=== PATIENT | female | born 1950 | race Caucasian/White ===

== ENCOUNTER 2019-05-05 11:42 | Outpatient (CLI) | payer OTHER, SELFPAY ==
--- NOTE | 2019-05-05 11:30 | DI.RAD_ITS ---
EXAM: XR SHOULDER LT COMPLETE 2+V INDICATION: LEFT SHOULDER PAIN WITH RESTRICTED LUE ABDUCTION, M25.512 PAIN LT SHOULDER. COMPARISON: LEFT RIBS TO INCLUDE CXR from 05/29/2016 TECHNIQUE: 2D digital imaging was performed. FINDINGS: There appears to be a cortical defect at the superior aspect of the acromion at the acromioclavicular joint. There is an osseous density in the vicinity. This may represent a small avulsed fracture. A bony erosive lesion cannot be excluded. There are mild degenerative changes seen at the acromiocla vicular joint. The glenohumeral joint is well maintained. The soft tissues are unremarkable. Joshua al wires are in place. IMPRESSION: Cortical defect involving the superior aspect of the acromion at the AC joint. Differential consider ations include a fracture or erosion. Please correlate with the patient's clinical history. A CT sc an may be considered for further evaluation.
== END 2019-05-05 12:02 ==
PROVIDERS: PCP Family Medicine; Visit Provider Nurse Practitioner Family
DX: M25.512 Pain in left shoulder (principal); M25.812 Other specified joint disorders, left shoulder; M21.922 Unspecified acquired deformity of left upper arm
CPT/HCPCS: 73030

== ENCOUNTER 2019-05-12 08:53 | Outpatient (CLI) | payer OTHER, SELFPAY ==
[2019-05-12 09:11] VITALS: BP 112/63; PULSE 55; RESP 16; TEMP 36.6; O2SAT 96
--- NOTE | 2019-05-12 09:40 | PDOC.PAIN ---
Pain Clinic Procedure Note Procedure Note Procedure Note: TRIGGER POINT INJECTION PROCEDURE NOTE The patient has complains of left shoulder pain due to left shoulder impingement and she exhibits myofascial pain of the left trapezius. she is referred today for trigger point injectino of the left trapezius. She has been evaluated by Ms Ambar Davison APRN. Ms Pearce was greeted by the nurse who verified patient's name and . Ms Pearce was interviewed and medical record reviewed. There were no medical, pharmacologic, radiographic and other structural contra-indications to attempting trigger point injections to the left trapezius muscle. Risks and potential side effects were discussed. The potential benefits of the procedure were reviewed with Ms Pearce and her voiced concerns were addressed. After obtaining informed consent, the patient signed the consent form. Standard time-out procedure was performed. Ms Pearce was placed in the seated position on the examination table. The skin entry point for entering and approaching the left trapezius muscle was marked. The skin was thoroughly prepared with alcohol preparation. Next, I entered the skin using a medial to lateral appraoch with a 1.5'' 25 gauge needle. Aspiration revealed no blood or other fluid. Next, point anesthesia was obtained by injecting a 50:50 mixture of 1% lidocaine and 0.5% Bupivocaine. Total of 10cc was used over 5-6 trigger points. Multiple passes through the muscles were completed which resulted in muscle twitching. Follow up plans and appointments were discussed with Ms Pearce and her daughter. Post procedure instructions was given. Having met discharge criteria, Ms Pearce was discharged from pain clinic. Of note, patient and her daughter were under the impression that she is receiving a left shoudler injection and TPI. As outlined in Ms Davison's note, patient has chronic left shoulder pain and an orthopedic referral was placed for her to have further evaluation done. She has plans to contact [facility] today after TPI procedure. I personally performed the entire procedure. Patient's O2 saturation was monitored and remained stable during the procedure. Jing Muñoz MD Pain Management
[2019-05-12 10:12] VITALS: O2SAT 98
[2019-05-12] MEDS: Bupivacaine 0.5% Pres-Free 10 ML VIAL (10:19)
[2019-05-12] MEDS: Lidocaine 1% Pres-Free 5 ML VIAL (10:20)
== END 2019-05-12 09:13 ==
PROVIDERS: Visit Provider Internal Medicine
DX: M25.512 Pain in left shoulder (principal)
CPT/HCPCS: 20552

== ENCOUNTER → 2021-07-03 11:06 | Outpatient (BNVA) | payer OTHER, SELFPAY | PROVIDERS: PCP Family Medicine; Visit Provider Student in an Organized Health Care Education/Training Program | DX: M12.812 Other specific arthropathies, not elsewhere classified, left shoulder (principal) | CPT/HCPCS: 20610; 99203; J1040 ==

== ENCOUNTER 2021-07-20 01:48 | Outpatient (CLI) | payer OTHER, SELFPAY ==
--- NOTE | 2021-07-20 14:03 | DI.RAD_ITS ---
Exam(s) RF JOINT INJECTION FLUORO GUID EXAM: RF JOINT INJECTION FLUORO GUID CLINICAL HISTORY: Left SHOULDER INJ UNDER FLUORO,RT SHOULDER PAIN,M25.511 TECHNIQUE: 2D and realtime digital imaging was performed. COMPARISON: No exams were available for comparison FINDINGS: Fluoroscopy was utilized by Dr. Rodriguez during left shoulder injection. Hard copy shows intra-artic ular left shoulder injection. IMPRESSION: RADIATION DOSE DELIVERED: jasson Medrano= 0.18 mGy Total DLP
[2021-07-20] MEDS: Bupivacaine 0.5% Pres-Free 30 ML VIAL IJ (14:05)
[2021-07-20] MEDS: methylPREDNISolone ACETATE 80 MG/ML VIAL IM (14:05)
[2021-07-20] MEDS: Omnipaque 300 MG/ML 10 ML BTL IJ (14:06)
--- NOTE | 2021-07-20 14:09 | W.PROCNOTE ---
Date of service: 07/20/21 Time of Service: 14:00 Procedure Note Date of procedure: 07/20/21 Procedure: Left Shoulder Injection Surgeon/Proceduralist/Physician: Ward Rodriguez Procedure Diagnosis: Left Shoulder Pain Procedure Indications: Ban has had persistent pain of the LEFT shoulder. Noninvasive measures have been tried. To serve as both diagnostic and therapeutic, an injection under fluoroscopy was recommended. I had discussed the risks of the procedure and the patient elected to proceed. Procedure Description: Ban was greeted in the flouroscopy room. The correct side was identified and the consent was reviewed with the patient and signed. The patient was then placed in the supine position on the fluoroscopy table. The LEFT shoulder was then prepped with Chloraprep. The anterior injection starting point was identiifed by bony landmarks and fluoroscopy. The skin and soft tissue in the tract of the injection was anesthetized with 1% Lidocaine. A spinal needle was then inserted deep into the shoulder joint at the level of the recess between the glenoid and superior humeral head. A small amount of Omnipaque solution was injected to confirm intraarticular placement. Once confirmed, the shoulder was injected with 4cc of 0.5% Bupivicaine and 80mg of Depo-Medrol. A bandaid was placed on the injection site. The patient tolerated the procedure well.
== END 2021-07-20 02:08 ==
PROVIDERS: PCP Family Medicine; Visit Provider Student in an Organized Health Care Education/Training Program
DX: M25.512 Pain in left shoulder (principal)
CPT/HCPCS: 20610; 77002; J1040

== ENCOUNTER 2022-01-03 08:19 | Outpatient (CLI) | payer OTHER, SELFPAY ==
--- NOTE | 2022-01-03 06:00 | DI.RAD_ITS ---
Exam(s) XR PAIN CLINIC LUMBAR SP 2V EXAM: XR PAIN CLINIC LUMBAR SP 2V CLINICAL HISTORY: Dx: Lumbar Radiculopathy TECHNIQUE: 2D and realtime digital imaging was performed. Radiologist not present. CONTRAST MATERIAL: None. COMPARISON: No exams were available for comparison FINDINGS: Fluoroscopy was provided for pain management therapy. Please refer to procedure report or details. Cumulative dose: Ka,r=5.98 mGy IMPRESSION: RADIATION DOSE DELIVERED:
[2022-01-03 08:28] VITALS: BP 129/72; PULSE 59; RESP 20; TEMP 36.2; O2SAT 100
[2022-01-03] MEDS: methylPREDNISolone ACETATE 80 MG/ML VIAL IJ (09:08)
[2022-01-03] MEDS: Omnipaque 240 MG/ML 50 ML BTL IJ (09:08)
[2022-01-03 09:19] VITALS: BP 168/85; PULSE 63; RESP 20; O2SAT 100
--- NOTE | 2022-01-03 09:49 | PDOC.PAIN_ITS ---
Date of service: 01/03/22 Time of Service: 09:53 Pain Clinic Procedure Note Procedure Note Procedure Note: CAUDAL EPIDURAL STEROID WITH CATHETER INJECTION PROCEDURE NOTE COMMENTS: She has done very well with this procedure in the past. Pre-procedure pain VAS was 7/10. DX: Lumbosacral radiculopathy Ban Pearce has been referred to the [facility] for lumbar epidural steroid injection. Patient was greeted by the nurse who verified the patient?s name and .? Patient was then taken to the fluoroscopy suite. The patient was interviewed and the medical record was reviewed.? There were no medical, pharmacologic, radiographic, or other structural contraindications to attempting fluoroscopically guided caudal epidural steroid injection. Risks and expected side effects as well as potential benefits of the procedure were reviewed and voiced concerns addressed.? The patient consent form was signed.? Standard time-out procedure was performed. The patient was placed in the prone position on the fluoroscopy table and automated blood pressure cuff, pulse oximeter, and 3 lead EKG was applied.? The skin entry point for entering/approaching the sacral hiatus was marked.? Following thorough chlorhexadine preparation of the skin and draping and 1% lidocaine infiltration of the skin entry point and subcutaneous tissues, a 17 gauge Touhy needle was placed under fluoroscopic guidance through the sacral hiatus.? Needle tip placement and depth were aided and confirmed by fluoroscopy. There was no paresthesia or return of blood or CSF through the needle. A 19G Arrow spinal catheter was threaded to the L5-S1 height and 1 cc's of Omnipaque 240 was injected with clear epidural spread confirmed with fluoroscopy.? Aspiration was performed with no resulting blood or clear fluid. One cc of depomedrol (80 mg/cc) was injected.? This was followed by 2 cc of 1% Lidocaine to flush the catheter.?There was not any unusual discomfort expressed.? The needle and catheter were removed together without difficulty. Vital signs were stable throughout the procedure and were as recorded in nursing records.? Follow up plans and appointments were discussed.? Post procedure instruction was given as documented in nursing records and having met discharge criteria and was discharged from the [facility] Management [facility]. Comments: She can have this procedure completed up to 3 times per 12 months if it is helpful. Post-procedure pain VAS was 0/10 Ajit Knutson DO, MPH [facility]-Pain Management [facility]
== END 2022-01-03 08:20 | disposition home or self-care (01) ==
LOC: PC 08:20
PROVIDERS: PCP Family Medicine; Visit Provider Preventive Medicine Occupational Medicine
DX: M54.17 Radiculopathy, lumbosacral region (principal)
CPT/HCPCS: 62323; 72100; J1040; Q9967

== ENCOUNTER 2022-02-28 13:15 | Outpatient (CLI) | payer OTHER, SELFPAY ==
--- NOTE | 2022-02-28 06:00 | DI.RAD_ITS ---
Exam(s) XR PAIN CLINIC LUMBAR SP 2V EXAM: XR PAIN CLINIC LUMBAR SP 2V CLINICAL HISTORY: Dx: Lumbar Radiculopathy TECHNIQUE: 2D and realtime digital imaging was performed. CONTRAST MATERIAL: Refer to procedure report. COMPARISON: No exams were available for comparison FINDINGS: Fluoroscopy was provided for Dr. Knutson during the performance of a lumbar epidural steroid injection. Please refer to the procedure report for complete details. Ka,r=9.01 mGy IMPRESSION:
[2022-02-28 13:23] VITALS: BP 102/62; PULSE 57; RESP 20; TEMP 36; O2SAT 97
--- NOTE | 2022-02-28 14:02 | PDOC.PAIN_ITS ---
Date of service: 02/28/22 Time of Service: 14:04 Pain Clinic Procedure Note Procedure Note Procedure Note: CAUDAL EPIDURAL STEROID WITH CATHETER INJECTION PROCEDURE NOTE COMMENTS: She has done excellent with this procedure in the past. Pre-procedure pain VAS was 6/10. Dx: Lumbosacral radiculopathy Ban Pearce has been referred to the [facility] for lumbar epidural steroid injection. Patient was greeted by the nurse who verified the patient?s name and .? Patient was then taken to the fluoroscopy suite. The patient was interviewed and the medical record was reviewed.? There were no medical, pharmacologic, radiographic, or other structural contraindications to attempting fluoroscopically guided caudal epidural steroid injection. Risks and expected side effects as well as potential benefits of the procedure were reviewed and voiced concerns addressed.? The patient consent form was signed.? Standard time-out procedure was performed. The patient was placed in the prone position on the fluoroscopy table and automated blood pressure cuff, pulse oximeter, and 3 lead EKG was applied.? The skin entry point for entering/approaching the sacral hiatus was marked.? Following thorough chlorhexadine preparation of the skin and draping and 1% lidocaine infiltration of the skin entry point and subcutaneous tissues, a 17 gauge Touhy needle was placed under fluoroscopic guidance through the sacral hiatus.? Needle tip placement and depth were aided and confirmed by fluoroscopy. There was no paresthesia or return of blood or CSF through the needle. A 19G Arrow spinal catheter was threaded to the L5 height and 1 cc's of Omnipaque 240 was injected with clear epidural spread confirmed with fluoroscopy.? Aspiration was performed with no resulting blood or clear fluid. One cc of depomedrol (80 mg/cc) was injected.? This was followed by 2 cc of 1% Lidocaine to flush the catheter.?There was not any unusual discomfort expressed.? The needle and catheter were removed together without difficulty. Vital signs were stable throughout the procedure and were as recorded in nursing records.? Post-procedure pain VAS was 0/10 Follow up plans and appointments were discussed. If this procedure is helpful, it can be completed up to 3 times per 12 months.? Post procedure instruction was given as documented in nursing records and having met discharge criteria and was discharged from the [facility] Center. Ajit Knutson DO, MPH [facility]-Pain Management [facility]
[2022-02-28] MEDS: Omnipaque 240 MG/ML 50 ML BTL IJ (14:11)
[2022-02-28] MEDS: methylPREDNISolone ACETATE 80 MG/ML VIAL IJ (14:11)
[2022-02-28 14:12] VITALS: BP 146/82; PULSE 55; RESP 16; O2SAT 99
== END 2022-02-28 13:16 | disposition home or self-care (01) ==
LOC: PC 13:16
PROVIDERS: PCP Family Medicine; Visit Provider Preventive Medicine Occupational Medicine
DX: M54.17 Radiculopathy, lumbosacral region (principal)
CPT/HCPCS: 62323; 72100; J1040; Q9967

== ENCOUNTER → 2022-12-20 01:54 | Outpatient (CLI) | payer OTHER, SELFPAY ==
--- NOTE | 2022-12-20 13:28 | DI.RAD_ITS ---
Exam(s) RF JOINT INJECTION FLUORO GUID EXAM: RF JOINT INJECTION FLUORO GUID CLINICAL HISTORY: pain,ROTATOR CUFF ARTHROPATHY,M12.812,FLUORO GUIDED INJECTION TECHNIQUE: Fluoroscopy provided. Radiologist not present. CONTRAST MATERIAL: None COMPARISON: No exams were available for comparison FINDINGS: Fluoroscopy was provided for Dr. Rodriguez during therapeutic left shoulder injection. Submitted image(s) reveal needle in place and intra-articular contrast in glenohumeral joint Please refer to the procedure report for complete details. Cumulative Dose: Ka,r=0.196 mGy IMPRESSION: RADIATION DOSE DELIVERED:
[2022-12-20] MEDS: methylPREDNISolone ACETATE 80 MG/ML VIAL IM (13:54)
[2022-12-20] MEDS: Omnipaque 300 MG/ML 10 ML BTL IJ (13:55)
[2022-12-20] MEDS: Bupivacaine 0.5% Pres-Free 10 ML VIAL 5 ML IJ (13:57)
--- NOTE | 2022-12-20 17:36 | W.PROCNOTE ---
Date of service: 12/20/22 Time of Service: 13:20 Procedure Note Date of procedure: 12/20/22 Procedure: Left Shoulder Injection Surgeon/Proceduralist/Physician: Ward Rodriguez Procedure Diagnosis: Left Shoulder Arthritis Procedure Indications: Ban has had persistent pain of the LEFT shoulder. Noninvasive measures have been tried and previous injection provided significant relief. To serve as both diagnostic and therapeutic, an injection under fluoroscopy was recommended. I had discussed the risks of the procedure and the patient elected to proceed. Procedure Description: Ban was greeted in the flouroscopy room. The correct side was identified and the consent was reviewed with the patient and signed. The patient was then placed in the supine position on the fluoroscopy table. The LEFT shoulder was then prepped with Chloraprep. The anterior injection starting point was identiifed by bony landmarks and fluoroscopy. The skin and soft tissue in the tract of the injection was anesthetized with 1% Lidocaine. A spinal needle was then inserted deep into the shoulder joint at the level of the recess between the glenoid and superior humeral head. A small amount of Omnipaque solution was injected to confirm intraarticular placement. Once confirmed, the shoulder was injected with 5cc of 0.5% Bupivicaine and 80mg of Depo-Medrol. A bandaid was placed on the injection site. The patient tolerated the procedure well and noted improvement in pre-injection pain.
== END ==
PROVIDERS: Visit Provider Student in an Organized Health Care Education/Training Program
DX: M12.812 Other specific arthropathies, not elsewhere classified, left shoulder (principal); M25.512 Pain in left shoulder
CPT/HCPCS: 20610; 77002; J1040

== ENCOUNTER → 2024-06-22 14:44 | Outpatient (BNVA) | payer MEDICARE, SELFPAY | PROVIDERS: Visit Provider Student in an Organized Health Care Education/Training Program | DX: M12.812 Other specific arthropathies, not elsewhere classified, left shoulder (principal) | CPT/HCPCS: 20611; 99213; J1010 ==